=== PATIENT | female | born 1965 | race Two or more races ===

== ENCOUNTER → 2017-10-20 | Emergency (ER) | payer OTHER ==
[~2017-10-20] VITALS: Ht 154.9 cm; Wt 59.9 kg
[~2017-10-20] MED LIST: ACID CONTROL20 MG; ATIVAN0.5 M1; CIPRO250 MG; CRESTOR5 MG; INTESTINEX1 CA1; METOCLOPRAMIDE10 MG; METOZOLV ODT5 MG PO; METRONIDAZOLE500 MG; PEPCID40 MG PO; PROTONIX40 MG PO; SYNTHROID50 MCG; TOPROL XL25 M1; ZOLOFT20 MG/1 ML; [UNRECOGNIZED DRUG - OTHER]
== END | disposition home or self-care (01) ==
LOC: ER 08:17
DX: K29.70 Gastritis, unspecified, without bleeding (principal)

== ENCOUNTER 2017-10-21 07:55 | Inpatient (IN) | payer OTHER ==
[~2017-10-21] VITALS: Ht 154.9 cm; Wt 61.2 kg
== END 2017-11-04 17:07 | disposition home or self-care (01) | DRG 373 ==
LOC: ER 07:55 → SURH 14:59 → SEC-K 14:59 → SURH 15:52
PROC: BW21ZZZ Computerized Tomography (CT Scan) of Abdomen and Pelvis (ICD-10-PCS; principal; 2017-10-21)
PROC: 02HV33Z Insertion of Infusion Device into Superior Vena Cava, Percutaneous Approach (ICD-10-PCS; 2017-10-22)
PROC: BW21ZZZ Computerized Tomography (CT Scan) of Abdomen and Pelvis (ICD-10-PCS; 2017-10-24)
PROC: BW21Y0Z Computerized Tomography (CT Scan) of Abdomen and Pelvis using Other Contrast, Unenhanced and Enhanced (ICD-10-PCS; 2017-10-25)
PROC: 3E0336Z Introduction of Nutritional Substance into Peripheral Vein, Percutaneous Approach (ICD-10-PCS; 2017-10-25)
PROC: BW21ZZZ Computerized Tomography (CT Scan) of Abdomen and Pelvis (ICD-10-PCS; 2017-10-30)
PROC: BW21Y0Z Computerized Tomography (CT Scan) of Abdomen and Pelvis using Other Contrast, Unenhanced and Enhanced (ICD-10-PCS; 2017-10-30)
DX: K35.2 Acute appendicitis with generalized peritonitis (principal); I10 Essential (primary) hypertension; E03.8 Other specified hypothyroidism; K59.09 Other constipation

== ENCOUNTER 2017-11-18 12:47 | Emergency (ER) | payer OTHER ==
[~2017-11-18] VITALS: Ht 157.5 cm; Wt 59.0 kg
== END 2017-11-18 19:03 | disposition home or self-care (01) ==
LOC: ER 12:47
DX: R10.31 Right lower quadrant pain (principal)

== ENCOUNTER 2017-12-10 07:30 | Outpatient (CLI) | payer OTHER | END 2017-12-10 07:43 | disposition home or self-care (01) | LOC: TOM 07:30 | DX: K35.2 Acute appendicitis with generalized peritonitis (principal) ==

== ENCOUNTER → 2017-12-16 06:14 | Outpatient (CLI) | payer OTHER ==
[~2017-12-16 06:14] MED LIST changes: +ATIVAN1 M1 PO; +COZAAR25 MG PO; +CRESTOR5 MG PO; +SYNTHROID50 MCG PO; +ZOLOFT25 MG PO; +[UNRECOGNIZED DRUG - OTHER] PO
== END | disposition home or self-care (01) ==
LOC: LAB 06:14
DX: Z01.812 Encounter for preprocedural laboratory examination (principal)

== ENCOUNTER 2017-12-24 05:50 | Day surgery (SDC) | payer OTHER | END 2017-12-24 11:50 | disposition home or self-care (01) | LOC: CIR.AMB 05:50 | DX: K35.89 Other acute appendicitis (principal) ==

== ENCOUNTER 2024-01-27 08:46 | Outpatient (CLI) | payer OTHER | END 2024-01-27 08:57 | disposition home or self-care (01) | LOC: SONOGRAMA 08:46 | PROVIDERS: ATTEND Pathology Anatomic Pathology & Clinical Pathology | DX: D34 Benign neoplasm of thyroid gland (principal); E07.89 Other specified disorders of thyroid; E04.9 Nontoxic goiter, unspecified ==